=== PATIENT | female | born 1945 | race African-American/Black ===

== ENCOUNTER 2022-10-11 07:31 | Inpatient (IN) ==
[2022-10-08 13:00] LABS: Mucus,Urine Occasional /LPF (Occasional); RBC,Urine 1 /HPF (0-4); Squamous Epithelial Cell,Urine Occasional /HPF (0-10)
[2022-10-08 13:02] LABS: Bilirubin,Urine Negative (Negative); Blood, Urine Negative (Negative); Glucose,Urine (UA) Negative (Negative); Ketones,Urine Negative (Negative); Nitrite,Urine Negative (Negative); Protein,Urine Negative (Negative); Urine Appearance Clear (Clear); Urine Color Yellow (Yellow); Urine Urobilinogen 0.2 eU/dL (<2.0)
[~2022-10-11 07:31] MED LIST: LACTATED RINGERS 1,000 ML IV SCH; VANCOMYCIN INJ 1,000 MG in SODIUM CHLORIDE 0.9% 250 ML IV ONE
[2022-10-11 08:03] LABS: PT Patient Result 10.8 SECS (10.1-12.1); Partial Thromboplastin Time 26.5 SECS (23.7-32.9)
[2022-10-11] MEDS ORDERED: FAMOTIDINE 20 MG TABLET PO ONE (08:09)
[2022-10-11] MEDS ORDERED: ACETAMINOPHEN 500 MG TABLET PO ONE (08:09)
[2022-10-11] MEDS ORDERED: ACETAMINOPHEN 500 MG TABLET ONE (08:11)
[2022-10-11] MEDS ORDERED: FAMOTIDINE 20 MG TABLET ONE (08:11)
[2022-10-11] MEDS ORDERED: MIDAZOLAM 2 MG/2 ML VIAL ONE ×2 (10:28→12:32)
[2022-10-11] MEDS ORDERED: TRANEXAMIC ACID 1,000 MG/10 ML VIAL ONE (10:28)
[2022-10-11] MEDS ORDERED: buprenorphine HCL 0.3 MG/ML VIAL ONE (10:29)
[2022-10-11] MEDS ORDERED: ROPIVACAINE 0.5% 30 ML VIAL ONE (11:36)
[2022-10-11] MEDS ORDERED: DEXAMETHASONE 4 MG/1 ML VIAL ONE (11:36)
[2022-10-11] MEDS ORDERED: LIDOCAINE 1% 5 ML VIAL ONE (11:36)
[2022-10-11] MEDS ORDERED: ETOMIDATE 40 MG/20 ML VIAL IV ONE (12:31)
[2022-10-11] MEDS ORDERED: ONDANSETRON 4 MG/2 ML VIAL ONE (12:31)
[2022-10-11] MEDS ORDERED: BACITRACIN OINT 0.9 GM PACK TOP ONE (13:19)
[2022-10-11] MEDS ORDERED: GLYCOPYRROLATE 0.4 MG/2 ML VIAL ONE (13:28)
[2022-10-11] MEDS: LACTATED RINGERS 1,000 ML IV SCH (14:01)
[2022-10-11] MEDS ORDERED: diphenhydrAMINE CAP 25 MG CAPSULE PO PRN (14:08)
[2022-10-11] MEDS ORDERED: ZALEPLON 5 MG CAPSULE PO PRN (14:08)
[2022-10-11] MEDS ORDERED: MAGNESIUM HYDROXIDE SUSP 30 ML UDCUP PO PRN (14:08)
[2022-10-11] MEDS: KETOROLAC 15 MG/1 ML VIAL IV SCH ×2 (15:42→20:43)
[2022-10-11] MEDS: DOCUSATE SODIUM 100 MG CAPSULE PO SCH (20:43)
[2022-10-12] MEDS: KETOROLAC 15 MG/1 ML VIAL IV SCH (02:47)
[2022-10-12] MEDS: LACTATED RINGERS 1,000 ML IV SCH ×2 (04:53→07:35)
[2022-10-12] MEDS: MORPHINE 2 MG/1 ML SYRINGE IV PRN (05:42)
[2022-10-12 05:49] LABS: Basophils % 0.1 % (0.0-0.8); Hematocrit 28.2 VOL% (35.7-47.0); Hemoglobin 8.8 GM/DL (12.0-16.0); Immature Granulocytes % 0.7 %; Immature Granulocytes Absolute 0.11 #; Lymphocytes # 0.8 10*3/uL (1.4-4.0); Lymphocytes % 4.9 % (21.3-54.2); Mean Corpuscular HGB Conc 31.2 GM/DL (32-36); Mean Corpuscular Volume 82.5 FL (87-102); Mean Platelet Volume 11.7 FL (9.6-12.0); Monocytes # 1.6 10*3/uL (0.11-0.8); Monocytes % 9.7 % (1.7-12.7); Neutrophils % 84.6 % (38.7-73.9); Platelet Count 215 T/CUMM (130-400); Red Blood Count 3.42 MC/CUMM (3.8-5.5); Red Cell Distribution Width 14.6 % (9.3-17.3); White Blood Count 16.35 T/CUMM (4-12)
[2022-10-12 06:02] LABS: Calcium 8.9 MG/DL (8.5-10.1)
[2022-10-12 06:12] LABS: Hypochromia 1+; Lymphocytes 8 % (20-55); Microcytosis 1+; Platelet Estimate Adequate; Total Cells Counted 100
[2022-10-12] MEDS: LOSARTAN 50 MG TABLET PO SCH (09:15)
[2022-10-12] MEDS: hydroCHLOROthiazide 25 MG TABLET PO SCH (09:15)
[2022-10-12] MEDS: tiZANidine 4 MG TABLET PO SCH (09:15)
[2022-10-12] MEDS: MULTIVITAMIN (CENTRUM) TABLET PO SCH (09:15)
[2022-10-12] MEDS: ATORVASTATIN 40 MG TABLET PO SCH (09:15)
[2022-10-12] MEDS: DOCUSATE SODIUM 100 MG CAPSULE PO SCH ×2 (09:15→20:53)
[2022-10-12] MEDS: METOPROLOL TARTRATE 100 MG TABLET PO SCH (09:16)
[2022-10-12] MEDS: CHOLECALCIFEROL 1,000 UNIT TABLET PO SCH (09:16)
[2022-10-12] MEDS: FONDAPARINUX 2.5 MG/0.5 ML SYRINGE SUBCUT SCH (09:20)
[2022-10-12] MEDS ORDERED: TUBERCULIN SKIN TEST 0.1 ML SYRINGE INTRADERM ONE (09:30)
[2022-10-13 06:30] LABS: Basophils % 0.3 % (0.0-0.8); Eosinophils % 0.1 % (0.00-10.9); Hematocrit 22.5 VOL% (35.7-47.0); Hemoglobin 7.3 GM/DL (12.0-16.0); Immature Granulocytes % 0.4 %; Immature Granulocytes Absolute 0.04 #; Lymphocytes # 1.3 10*3/uL (1.4-4.0); Lymphocytes % 12.1 % (21.3-54.2); Mean Corpuscular HGB Conc 32.4 GM/DL (32-36); Mean Corpuscular Volume 80.9 FL (87-102); Monocytes # 1.4 10*3/uL (0.11-0.8); Monocytes % 13.2 % (1.7-12.7); Neutrophils % 73.9 % (38.7-73.9); Platelet Count 159 T/CUMM (130-400); Red Blood Count 2.78 MC/CUMM (3.8-5.5); Red Cell Distribution Width 14.6 % (9.3-17.3); White Blood Count 10.52 T/CUMM (4-12)
[2022-10-13] MEDS ORDERED: SODIUM CHLORIDE 0.9% 1,000 ML IV PRN (06:39)
[2022-10-13] MEDS ORDERED: FUROSEMIDE 40 MG/4 ML VIAL IV PRN (06:40)
[2022-10-13] MEDS: hydroCHLOROthiazide 25 MG TABLET PO SCH (09:53)
[2022-10-13] MEDS: tiZANidine 4 MG TABLET PO SCH (09:53)
[2022-10-13] MEDS: LOSARTAN 50 MG TABLET PO SCH (09:53)
[2022-10-13] MEDS: ATORVASTATIN 40 MG TABLET PO SCH (09:53)
[2022-10-13] MEDS: MULTIVITAMIN (CENTRUM) TABLET PO SCH (09:54)
[2022-10-13] MEDS: FONDAPARINUX 2.5 MG/0.5 ML SYRINGE SUBCUT SCH (09:54)
[2022-10-13] MEDS: CHOLECALCIFEROL 1,000 UNIT TABLET PO SCH (09:54)
[2022-10-13] MEDS: DOCUSATE SODIUM 100 MG CAPSULE PO SCH ×2 (09:54→21:01)
[2022-10-13] MEDS: METOPROLOL TARTRATE 100 MG TABLET PO SCH (09:54)
[2022-10-13] MEDS: MORPHINE 2 MG/1 ML SYRINGE IV PRN (09:58)
[2022-10-14 04:54] LABS: Basophils % 0.3 % (0.0-0.8); Eosinophils # 0.1 10*3/uL (0.0-0.87); Eosinophils % 0.9 % (0.00-10.9); Hematocrit 31.8 VOL% (35.7-47.0); Hemoglobin 10.4 GM/DL (12.0-16.0); Immature Granulocytes % 0.9 %; Immature Granulocytes Absolute 0.11 #; Lymphocytes # 1.3 10*3/uL (1.4-4.0); Lymphocytes % 10.3 % (21.3-54.2); Mean Corpuscular HGB Conc 32.7 GM/DL (32-36); Mean Corpuscular Volume 80.7 FL (87-102); Mean Platelet Volume 11.9 FL (9.6-12.0); Monocytes # 1.2 10*3/uL (0.11-0.8); Monocytes % 9.5 % (1.7-12.7); Neutrophils % 78.1 % (38.7-73.9); Platelet Count 149 T/CUMM (130-400); Red Blood Count 3.94 MC/CUMM (3.8-5.5); Red Cell Distribution Width 14.7 % (9.3-17.3); White Blood Count 12.23 T/CUMM (4-12)
[2022-10-14 07:30] VITALS: BP 148/91
[2022-10-14] MEDS: DOCUSATE SODIUM 100 MG CAPSULE PO SCH (08:38)
[2022-10-14] MEDS: ATORVASTATIN 40 MG TABLET PO SCH (08:38)
[2022-10-14] MEDS: FONDAPARINUX 2.5 MG/0.5 ML SYRINGE SUBCUT SCH (08:38)
[2022-10-14] MEDS: tiZANidine 4 MG TABLET PO SCH (08:38)
[2022-10-14] MEDS: hydroCHLOROthiazide 25 MG TABLET PO SCH (08:38)
[2022-10-14] MEDS: MULTIVITAMIN (CENTRUM) TABLET PO SCH (08:38)
[2022-10-14] MEDS: CHOLECALCIFEROL 1,000 UNIT TABLET PO SCH (08:38)
[2022-10-14] MEDS: METOPROLOL TARTRATE 100 MG TABLET PO SCH (08:38)
[2022-10-14] MEDS: LOSARTAN 50 MG TABLET PO SCH (08:38)
== END 2022-10-14 09:56 | disposition swing bed (61) | DRG 470 ==
LOC: N.OR 07:31 → N.SDSINP 07:34 → N.3E 14:08
PROVIDERS: ADMIT Orthopaedic Surgery; ATTEND Orthopaedic Surgery